=== PATIENT | female | born 1980 | race Caucasian/White ===

== ENCOUNTER 2017-08-22 07:03 | Emergency (ER) | payer OTHER ==
[~2017-08-22] VITALS: Ht 162.6 cm; Wt 72.0 kg
[2017-08-22 07:15] VITALS: BP 142/99
[2017-08-22] MEDS ORDERED: SULF1TAB49 PO (09:01)
== END 2017-08-22 09:16 | disposition home or self-care (01) ==
LOC: ER 07:03
DX: T81.4XXA Infection following a procedure, initial encounter (principal); Y83.8 Other surgical procedures as the cause of abnormal reaction of the patient, or of later complication, without mention of misadventure at the time of the procedure; Y92.89 Other specified places as the place of occurrence of the external cause
CPT/HCPCS: 99283

== ENCOUNTER 2020-12-27 03:14 | Emergency (ER) | payer BC, OTHER ==
[2020-12-27] MEDS ORDERED: AMOX-422 PO (03:28)
[2020-12-27] MEDS ORDERED: amox tr/potassium clavulanate 875/125mg TAB PO ONE (03:30)
== END 2020-12-27 04:08 | disposition home or self-care (01) ==
LOC: ER 03:14
DX: S61.231A Puncture wound without foreign body of left index finger without damage to nail, initial encounter (principal); Z88.2 Allergy status to sulfonamides; Z88.8 Allergy status to other drugs, medicaments and biological substances; Z79.899 Other long term (current) drug therapy; W55.01XA Bitten by cat, initial encounter; Y93.89 Activity, other specified; Y92.89 Other specified places as the place of occurrence of the external cause; Y99.8 Other external cause status
CPT/HCPCS: 73130; 99283

== ENCOUNTER 2021-10-31 07:52 | Emergency (ER) | payer BC, OTHER ==
[~2021-10-31] VITALS: Ht 160 cm; Wt 79.5 kg
[2021-10-31] MEDS ORDERED: BUPIVAcaine 0.5% inj/PF 30 ml vial IJ ONE (08:25)
[2021-10-31] MEDS ORDERED: METH-797 PO (08:36)
[2021-10-31] MEDS ORDERED: DIAZ-351 PO (08:36)
[2021-10-31] MEDS ORDERED: PRED20TA PO (08:36)
[2021-10-31] MEDS ORDERED: diazepam 5mg tablet PO ONE (08:40)
[2021-10-31 08:58] VITALS: BP 145/92
== END 2021-10-31 09:00 | disposition home or self-care (01) ==
LOC: ER 07:52
DX: M54.42 Lumbago with sciatica, left side (principal); M54.41 Lumbago with sciatica, right side; G89.29 Other chronic pain; F17.200 Nicotine dependence, unspecified, uncomplicated; Z88.1 Allergy status to other antibiotic agents; Z88.8 Allergy status to other drugs, medicaments and biological substances; Z79.899 Other long term (current) drug therapy
CPT/HCPCS: 20553; 99284

== ENCOUNTER 2021-11-07 00:34 | Emergency (ER) | payer BC ==
[~2021-11-07] VITALS: Ht 160 cm; Wt 70.0 kg
[~2021-11-07 00:34] MED LIST: DIAZ-351 PO; METH-797 PO; PRED20TA PO
[2021-11-07 00:35] VITALS: BP 134/95
[2021-11-07] MEDS ORDERED: ketorolac trometh. 30mg/ml inj. IM ONE (02:05)
== END 2021-11-07 03:57 | disposition home or self-care (01) ==
LOC: EEVIPCON 00:34 → ER 00:34
DX: M54.31 Sciatica, right side (principal); G89.29 Other chronic pain; Z88.2 Allergy status to sulfonamides; Z88.8 Allergy status to other drugs, medicaments and biological substances; Z79.899 Other long term (current) drug therapy
CPT/HCPCS: 96372; 99283; J1885